=== PATIENT | female | born 1960 ===

== ENCOUNTER 2022-12-19 11:28 | Observation (INO) ==
[~2022-12-19 11:28] MED LIST: Buffered Lidocaine 1% SYRIN 1 ml INTRADERM ONE; Lactated Ringers 1000 ml BAG 1,000 ML IV SCH
[2022-12-19] MEDS ORDERED: ceFAZolin 2 GM PREMIX 2 GM/50 ML BAG ONE (11:51)
[2022-12-19] MEDS ORDERED: Midazolam 2 mg/2 ml VIAL 1 mg/ml 2 ml VIAL (2 mg) ONE (12:35)
[2022-12-19] MEDS ORDERED: fentaNYL 100 mcg/2 ml 50 MCG/ML VIAL ONE ×2 (12:37→17:39)
[2022-12-19] MEDS ORDERED: Propofol 10 MG/ML 20 ML BTL ONE ×2 (15:22→15:54)
[2022-12-19] MEDS ORDERED: Lidocaine 2% PF 5 ML VIAL ONE (15:52)
[2022-12-19] MEDS ORDERED: Acetaminophen IV 1 GM/100ML 1,000 MG/100 ML BAG IV ONE (15:52)
[2022-12-19] MEDS ORDERED: Ondansetron 4 mg VIAL 2 MG/ML 2 ml VIAL ONE (15:53)
[2022-12-19] MEDS ORDERED: Dexamethasone IV 4 MG/ML VIAL 1 ml VIAL ONE (15:53)
[2022-12-19] MEDS ORDERED: Morphine 2 MG/ML SYRINGE IV PRN (15:55)
[2022-12-19] MEDS ORDERED: Magnesium Hydroxide LIQ 30 ML UDC PO PRN (15:55)
[2022-12-19] MEDS ORDERED: Lactulose 30 ml UDC PO PRN (15:55)
[2022-12-19] MEDS ORDERED: Ondansetron 4 mg VIAL 2 MG/ML 2 ml VIAL IV PRN ×2 (15:55→16:07)
[2022-12-19] MEDS ORDERED: Ondansetron ODT 4 mg TAB 4 MG TAB PO PRN (15:55)
[2022-12-19] MEDS ORDERED: Lactated Ringers 1000 ml BAG 1,000 ML IV SCH (16:00)
[2022-12-19] MEDS ORDERED: Acetaminophen IV 1 GM/100ML 1,000 MG/100 ML BAG IV PRN (16:07)
[2022-12-19] MEDS ORDERED: fentaNYL 100 mcg/2 ml 50 MCG/ML VIAL IV PRN (16:07)
[2022-12-19] MEDS ORDERED: Naloxone 0.4 mg VIAL 0.4 mg/ml 1 ml VIAL IV PRN (16:07)
[2022-12-19] MEDS ORDERED: HYDROmorphone 1 MG/1 ML SYRINGE ONE (18:02)
[2022-12-19] MEDS: HYDROmorphone 1 MG/1 ML SYRINGE IV PRN ×3 (18:03→18:42)
[2022-12-19] MEDS ORDERED: Dextrose 50% Syringe 50 ml 25 GM/50 ML SYRINGE IV PUSH PRN (18:53)
[2022-12-19] MEDS: Magnesium Hydroxide LIQ 30 ML UDC PO SCH (21:47)
[2022-12-19] MEDS: ceFAZolin 1 GM ADVAN 1 GM in NS 0.9% 50 ML 50 ML IVPB SCH (22:38)
[2022-12-20 06:10] LABS: Hematocrit 28 % (35-47); Hemoglobin 9.4 g/dL (12.0-16.0); Mean Platelet Volume 7.6 fL (7.4-10.4); Platelet Count 250 10^3/uL (150-450)
[2022-12-20 06:26] LABS: Calcium 8.4 mg/dL (8.6-10.3); Creatinine, Serum 1.14 mg/dL (0.51-0.95); Potassium 4.6 mmol/L (3.5-5.0); eGFR CKD-EPI 54.8 (>60)
[2022-12-20] MEDS: ceFAZolin 1 GM ADVAN 1 GM in NS 0.9% 50 ML 50 ML IVPB SCH ×2 (06:51→13:48)
[2022-12-20] MEDS: Magnesium Hydroxide LIQ 30 ML UDC PO SCH (08:06)
[2022-12-20] MEDS ORDERED: Vitamin THERAPEUTIC TAB PO SCH (09:00)
[2022-12-20 11:38] VITALS: BP 102/64
== END 2022-12-20 15:24 | disposition home or self-care (01) ==
LOC: SDS 11:28 → SSU 11:28 → EDSTATUS 14:15
PROVIDERS: ADMIT Orthopaedic Surgery Adult Reconstructive Orthopaedic Surgery; ATTEND Orthopaedic Surgery Adult Reconstructive Orthopaedic Surgery